=== PATIENT | male | born 1950 | race Caucasian/White ===

== ENCOUNTER 2017-10-13 21:03 | Emergency (ER) | payer MEDICARE ==
--- NOTE | 2017-10-13 21:51 | ER Document Report ---
ED Dizziness/Weakness - General Mode of Arrival: Ambulatory Information source: Patient, Relative <RONNIE HIDALGO - Last Filed: 10/13/17 21:44> <SHERRI SUBRAMANIAN - Last Filed: 10/14/17 00:40> - General Chief Complaint: Passed Out Prior to Arrival Stated Complaint: SYNCOPE Time Seen by Provider: 10/13/17 21:17 Notes: Patient is a 67 year old male with a history of Prostate cancer presents to the emergency room accompanied by for a syncopal episode. Patient states that he recently drove from [place] on Monday. states that they were at dinner when the patient got up and sat down quickly after feeling light headed. states that he was unresponsive for around a minute. states that when he came to he was confused for a couple of minutes. Patient states that he has been exhausted and has not been sleeping well since he's been in [place]. Patient states he has been dizzy since before the drive, but the drive worsened his symptoms. Patient currently takes Levaquin (500 mg), Flomax (directed to stop 10/11/2017) , Asprin, and Zofran as needed. Patient states he is on his 11th week of Chemo. (RONNIE HIDALGO) Past Medical History - General Information source: Patient, Relative - Social History Smoking Status: Current Some Day Smoker Frequency of alcohol use: Occasional Patient has suicidal ideation: No Patient has homicidal ideation: No <RONNIE HIDALGO - Last Filed: 10/13/17 21:44> - Social History Family History: None <SHERRI SUBRAMANIAN - Last Filed: 10/14/17 00:40> Review of Systems - Review of Systems Constitutional: No symptoms reported EENT: No symptoms reported Cardiovascular: See HPI, Syncope, Dizziness Respiratory: No symptoms reported Gastrointestinal: No symptoms reported Genitourinary: No symptoms reported Male Genitourinary: No symptoms reported Musculoskeletal: No symptoms reported Skin: No symptoms reported Hematologic/Lymphatic: No symptoms reported Neurological/Psychological: No symptoms reported -: Yes All other systems reviewed and negative <RONNIE HIDALGO - Last Filed: 10/13/17 21:44> Physical Exam <RONNIE HIDALGO - Last Filed: 10/13/17 21:44> <SHERRI SUBRAMANIAN - Last Filed: 10/14/17 00:40> - Vital signs Vitals: Resp Pulse Ox 17 97 10/13/17 21:14 10/13/17 21:14 - Notes Notes: GENERAL: Alert, interacts well. No acute distress. HEAD: Normocephalic, atraumatic. EYES: Pupils equal, round, and reactive to light. Extraocular movements intact. ENT: Oral mucosa moist, tongue midline. NECK: Full range of motion. Supple. Trachea midline. LUNGS: Clear to auscultation bilaterally, no wheezes, rales, or rhonchi. No respiratory distress. HEART: Regular rate and rhythm. No murmurs, gallops, or rubs. ABDOMEN: Soft, non-tender. Non-distended. Bowel sounds present in all 4 quadrants. EXTREMITIES: Moves all 4 extremities spontaneously. No edema, radial and dorsalis pedis pulses 2/4 bilaterally. No cyanosis. No swelling in the bilateral LE. NEUROLOGICAL: Alert and oriented x3. Normal speech. PSYCH: Normal affect, normal mood. SKIN: Warm, dry, normal turgor. No rashes or lesions noted. (RONNIE HIDALGO) Course <RONNIE HIDALGO - Last Filed: 10/13/17 21:44> - Laboratory Result Diagrams: 10/13/17 21:45 10/13/17 21:45 <SHERRI SUBRAMANIAN - Last Filed: 10/14/17 00:40> - Re-evaluation Re-evalutation: 10/14/17 00:31 CBC shows pancytopenia consistent with the patient's history of recent chemotherapy, white count is low at 1.2 however he is not febrile here nor has he had a fever at home, no symptoms of infection at this time, hemoglobin low at 10.5, platelets of 121, coags slightly prolonged, CMP shows somewhat low sodium 131.4, no acute neurologic changes, total and direct bilirubin slightly elevated, cardiac enzymes negative, CT angiogram of the chest shows no evidence of pulmonary angina embolism or pericardial effusion however there are several enlarged lymph nodes as well as innumerable osseous sclerotic lesions. Patient is known to have metastatic prostate cancer. No cause for the patient's dizziness, syncope and intermittent hypotension is found however it could be coming from the Flomax that he was recently taking and just recently stopped taking when combined with cancer and chemotherapy. Patient is feeling better after a liter of normal saline. Counseled patient on possibility of orthostatic hypotension and change in position very slowly. Patient will be discharged home, will return for chest pain, fevers or any new or concerning symptoms. Disc has been printed for patient to take home to [place]. Discharged to home. (SHERRI SUBRAMANIAN) - Vital Signs Vital signs: Temp Pulse Resp BP Pulse Ox 98.9 F 21 H 106/79 94 10/13/17 21:17 10/13/17 23:40 10/13/17 23:40 10/13/17 23:40 - Laboratory Laboratory results interpreted by me: 10/13/17 10/13/17 10/13/17 21:45 21:45 21:45 WBC 1.2 L* RBC 3.27 L Hgb 10.5 L Hct 29.7 L RDW 16.2 H Plt Count 121 L Band Neutrophils % 8 H Metamyelocytes % 2 H Abs Neuts (Manual) 0.7 L APTT 36.7 H Sodium 131.4 L Glucose 140 H Calcium 8.3 L Total Bilirubin 1.8 H Direct Bilirubin 0.6 H Creatine Kinase 422 H Total Protein 5.9 L Albumin 3.3 L - EKG Interpretation by Me Additional EKG results interpreted by me: 10/14/17 00:33 EKG shows sinus rhythm at a rate of [address] segment elevations or depressions, no T-wave inversions, slight left axis deviation, prolonged QT interval per my interpretation. (SHERRI SUBRAMANIAN) Discharge <RONNIE HIDALGO - Last Filed: 10/13/17 21:44> <SHERRI SUBRAMANIAN - Last Filed: 10/14/17 00:40> - Discharge Clinical Impression: Orthostatic syncope, Prostate cancer metastatic to bone, Pancytopenia, Tobacco abuse, Tobacco abuse counseling Condition: Stable Disposition: HOME, SELF-CARE Additional Instructions: Orthostatic Hypotension You have orthostatic hypotension. Your blood pressure goes down when you stand up. Symptoms can include dizziness, transient loss of vision, ringing in the ears, nausea, and fainting. At this time, there's no evidence of a serious problem requiring hospitalization. Orthostatic hypotension can be caused by dehydration, poor nutrition, over- exercise, or medication. For some people, orthostatic hypotension is an ongoing problem, and no cause can be found. We usually treat orthostatic hypotension with fluids. We look for a treatable cause. If no cause was found, you should get enough rest, exercise moderately, and get plenty of fluids. When you feel the first symptoms suggesting you might faint, sit or squat down as quickly as you can. If symptoms don't go away quickly, lie down. Call the doctor or return if you are worsening or if new symptoms develop. Syncopal Episode Syncope (fainting or near-fainting) can occur from many different health problems. Or it can be a simple fainting spell requiring no treatment. It is safe for you to go home, but further evaluation will likely be necessary. Your work-up may include tests for internal bleeding, heart disease, medication problems, or near-strokes. Tests are not always required, however, depending on the nature of your problem. The warning signs of an impending faint include: dizziness, lightheadedness , nausea, hot flashes, tingling, and weakness. If this happens, lay down and put your feet up, then wait until all of these symptoms have passed before standing up again. If these episodes become recurrent, or if you develop chest pain, heart palpitations, mental confusion, blurred vision, or headache, then you should call the physician, or go to the emergency room. Forms: Smoking Cessation Education Referrals: RISSA CASAS MD [ACTIVE STAFF] - Follow up in 3-5 days Scribe Attestation: 10/14/17 00:40 I personally performed the services described in the documentation, reviewed and edited the documentation which was dictated to the scribe in my presence, and it accurately records my words and actions. (SHERRI SUBRAMANIAN) Scribe Documentation - Scribe Written by Sheela:: Sheela Traylor, 10/13/2017 acting as scribe for :: Mauri <RONNIE HIDALGO - Last Filed: 10/13/17 21:44>
[2017-10-13] MEDS ORDERED: RINGERS SOLUTION,LACTATED 1,000 ML IV ONE (22:14)
[2017-10-13 22:29] LABS: HEMATOCRIT 29.7 % (37.9-51.0); HEMOGLOBIN 10.5 g/dL (13.5-17.0); HGB HCT DIFFERENCE 1.8; MEAN CORPUSCULAR HEMOGLOBIN 32.2 pg (27.0-33.4); MEAN CORPUSCULAR HGB CONC 35.4 g/dL (32.0-36.0); MEAN CORPUSCULAR VOLUME 91 fl (80-97); RED BLOOD COUNT 3.27 10^6/uL (4.35-5.55); RED CELL DISTRIBUTION WIDTH 16.2 % (11.5-14.0)
[2017-10-13 22:40] LABS: PROTHROMBIN TIME 14.6 SEC (11.4-15.4)
[2017-10-13 22:45] LABS: ALANINE AMINOTRANSFERASE 43 U/L (21-72); ALBUMIN 3.3 g/dL (3.5-5.0); ALKALINE PHOSPHATASE 80 U/L (38-126); ANION GAP 10 (5-19); ASPARTATE AMINO TRANSFERASE 32 U/L (17-59); BILIRUBIN,DIRECT 0.6 mg/dL (0.0-0.4); BILIRUBIN,TOTAL 1.8 mg/dL (0.2-1.3); BLOOD UREA NITROGEN 11 mg/dL (7-20); CALCIUM 8.3 mg/dL (8.4-10.2); CARBON DIOXIDE 22 mmol/L (22-30); CHLORIDE 99 mmol/L (98-107); CREATINE KINASE 422 U/L (55-170); CREATININE RESULT 0.71 mg/dL (0.52-1.25); GLUCOSE 140 mg/dL (75-110); POTASSIUM 3.6 mmol/L (3.6-5.0); SODIUM 131.4 mmol/L (137-145); TOTAL PROTEIN 5.9 g/dL (6.3-8.2)
[2017-10-13 22:56] LABS: CREATINE KINASE MB 3.46 ng/mL (<4.55)
[2017-10-13 22:57] LABS: TROPONIN I < 0.012 ng/mL
[2017-10-13 23:01] LABS: BAND NEUTROPHILS % (MANUAL) 8 % (3-5); BASOPHILS % (MANUAL) 0 % (0-2); EOSINOPHILS % (MANUAL) 0 % (0-6); LYMPHOCYTES % (MANUAL) 36 % (13-45)
[2017-10-13 23:03] LABS: ANISOCYTOSIS 1+; OVALOCYTES SLIGHT; POIKILOCYTOSIS SLIGHT
[2017-10-13 23:06] LABS: TEAR DROP CELLS SLIGHT; WHITE BLOOD COUNT 1.2 10^3/uL (4.0-10.5)
[2017-10-13 23:10] LABS: TOTAL CELLS COUNTED 50
--- NOTE | 2017-10-14 00:04 | RADIOLOGY REPORT (SQ) ---
EXAM DESCRIPTION: CTA CHEST COMPLETED DATE/TIME: 10/13/2017 11:29 pm REASON FOR STUDY: SOB, prostate CA, smoker, long drive, r/o PE COMPARISON: None. TECHNIQUE: CT scan of the chest performed using helical scanning technique with dynamic intravenous contrast injection. Images reviewed with lung, soft tissue and bone windows. Reconstructed coronal and sagittal MPR images reviewed. Additional 3 dimensional post-processing performed to develop Maximal Intensity Projection images (UT P). All images stored on PACS. All CT scanners at this facility use dose modulation, iterative reconstruction, and/or weight based d osing when appropriate to reduce radiation dose to as low as reasonably achievable (ALARA). [facility]: Dose Right [facility]: CareDose [facility]: Dose Right [facility]: Teradose 4D [facility]: [employer] CONTRAST TYPE AND DOSE: contrast/concentration: Isovue 370.00 mg/ml; Total Contrast Delivered: 79.0 ml; Total Saline Delivered: 110.2 ml Contrast bolus optimized for the pulmonary arteries. Not diagnostic for the aorta. RENAL FUNCTION: Creatinine 0.70 RADIATION DOSE: . LIMITATIONS: None. FINDINGS: LUNGS AND PLEURA: Bibasilar atelectasis. No pleural effusion or pneumothorax. There are mild emphysematous changes. AORTA AND GREAT VESSELS: No thoracic aortic aneurysm. Contrast bolus not optimized for the aorta. HEART: No pericardial effusion. Coronary arteries calcifications are noted. PULMONARY ARTERIES: No emboli visualized in the main pulmonary arteries or the segmental branches. HILAR AND MEDIASTINAL STRUCTURES: Left paratracheal lymph node measuring 13 mm in short axis. Subcar inal lymph node measuring 11 mm in short axis. No pathologically enlarged lymph nodes are seen at th e sanjana. HARDWARE: None in the chest. UPPER ABDOMEN: The liver has diffuse decreased attenuation, most consistent with fatty infiltration. Limited exam. THYROID AND OTHER SOFT TISSUES: The visualized thyroid gland is unremarkable. . BONES: Degenerative changes in the spine. Innumerable osseous sclerotic lesions are noted. 3D MIPS: Confirm above findings. IMPRESSION: No pulmonary emboli. Bibasilar atelectasis. Mild emphysema. Mild mediastinal adenopathy. Fatty infiltration of the liver. Innumerable osseous sclerotic lesions, consistent with diffuse osseous metastasis. COMMENT: Quality ID # [id number]: Final reports with documentation of one or more dose reduction techniques (e.g., Automated exposure control, adjustment of the mA and/or kV according to patient size, use of iterative reconstruction technique) TECHNICAL DOCUMENTATION: JOB ID: [id number] 2010 [employer]- All Rights Reserved
[2017-10-14 00:56] VITALS: BP 97/65
--- NOTE | 2017-10-14 20:58 | EKG REPORT ---
SEVERITY:- ABNORMAL ECG - SINUS RHYTHM PROBABLE INFERIOR INFARCT, AGE INDETERMINATE PROLONGED QT INTERVAL : Confirmed by: Ernst Topete MD 14-Oct-2017 08:30:13
== END 2017-10-14 00:56 | disposition home or self-care (01) ==
LOC: ER 21:03
DX: R55 Syncope and collapse (principal); C61 Malignant neoplasm of prostate; C79.51 Secondary malignant neoplasm of bone; D61.818 Other pancytopenia; I95.9 Hypotension, unspecified; F17.200 Nicotine dependence, unspecified, uncomplicated; Z71.6 Tobacco abuse counseling; Z79.899 Other long term (current) drug therapy; Z79.2 Long term (current) use of antibiotics; Z79.82 Long term (current) use of aspirin
CPT/HCPCS: 93005; 99285; 96360; 36415; 82553; 82550; 85025; 85610; 85730; 80053; 84484; 71275; 93010; J7120